=== PATIENT | male | born 1955 | race Caucasian/White ===

== ENCOUNTER 2019-03-06 21:20 | Day surgery (SDC) | payer BC ==
--- NOTE | 2019-03-06 21:39 | EDM.PDOC ---
ED HPI GENERAL MEDICAL PROBLEM - General Chief Complaint: ENT Problem Stated Complaint: PAIN IN THROAT Time Seen by Provider: 03/06/19 21:35 - History of Present Illness INITIAL COMMENTS - FREE TEXT/NARRATIVE: HISTORY AND PHYSICAL: History of present illness: Patient is 63-year-old white male presents with a concern of esophageal food bolus in the form of steak 3 hours prior to arrival he states that unable take any liquid or even handle his saliva he had no shortness of breath he's had similar episodes in the past that resolved spontaneously Review of systems: As per history of present illness and below otherwise all systems reviewed and negative. Past medical history: As per history of present illness and as reviewed below otherwise noncontributory. Surgical history: As per history of present illness and as reviewed below otherwise noncontributory. Social history: No reported history of drug or alcohol abuse. Family history: As per history of present illness and as reviewed below otherwise noncontributory. Physical exam: HEENT: Atraumatic, normocephalic, pupils reactive, negative for conjunctival pallor or scleral icterus, mucous membranes moist, throat clear, neck supple, nontender, trachea midline. Lungs: Clear to auscultation, breath sounds equal bilaterally, chest nontender. Heart: S1S2, regular, negative for clicks, rubs, or JVD. Abdomen: Soft, nondistended, nontender. Negative for masses or hepatosplenomegaly. Negative for costovertebral tenderness. Pelvis: Stable nontender. Genitourinary: Deferred. Rectal: Deferred. Extremities: Atraumatic, negative for cords or calf pain. Neurovascular unremarkable. Neuro: Awake, alert, oriented. Cranial nerves II through XII unremarkable. Cerebellum unremarkable. Motor and sensory unremarkable throughout. Exam nonfocal. Diagnostics: Chest x-ray Therapeutics: Saline lock glucagon 1 mg IV Impression: #1 esophageal food bolus Definitive disposition and diagnosis as appropriate pending reevaluation and review of above. Throat Pain Score (Numeric/FACES): 6 - Related Data Allergies Allergy/AdvReac Type Severity Reaction Status Date / Time No Known Allergies Allergy Verified 03/06/19 21:33 Home Meds: Home Meds Pantoprazole Sodium 40 mg PO QAM #30 tablet. 03/06/19 [Rx] Past Medical History Other HEENT History: hx recent sinus infection ED ROS GENERAL - Review of Systems Review Of Systems: ROS reveals no pertinent complaints other than HPI. ED EXAM, GENERAL - Physical Exam Exam: See Below (dictation) Course - Vital Signs Last Recorded V/S: Last Vital Signs Temp 36.2 C 03/06/19 23:49 Pulse 84 03/06/19 23:49 Resp 15 03/06/19 23:49 BP 159/102 H 03/06/19 23:49 Pulse Ox 97 03/06/19 23:49 - Orders/Labs/Meds Orders: Active Orders 24 hr Category Date Time Status Ready for Discharge [RC] PER UNIT ROUTINE Care 03/06/19 23:51 Active Saline Lock Insert [OM.PC] Stat Oth 03/06/19 21:38 Ordered Meds: Medications Discontinued Medications Generic Name Dose Route Start Last Admin Trade Name Darby PRN Reason Stop Dose Admin Fentanyl Confirm 03/06/19 22:48 Sublimaze Administered 03/06/19 22:49 Dose 100 mcg .ROUTE .STK-MED ONE Fentanyl Confirm 03/06/19 23:11 Sublimaze Administered 03/06/19 23:12 Dose 100 mcg .ROUTE .STK-MED ONE Glucagon 1 mg 03/06/19 21:40 03/06/19 21:54 Glucagen IVPUSH 03/06/19 21:41 1 mg ONETIME ONE Administration Propofol Confirm 03/06/19 22:48 Diprivan 20 Ml Administered 03/06/19 22:49 Dose 200 mg .ROUTE .STK-MED ONE Succinylcholine Chloride Confirm 03/06/19 22:48 Succinylcholine Chloride Administered 03/06/19 22:49 Dose 200 mg .ROUTE .STK-MED ONE Departure - Departure Time of Disposition: 23:59 Disposition: Still A Patient 30 Condition: Good Clinical Impression: Odynophagia - Discharge Information - My Orders Last 24 Hours: My Active Orders 03/06/19 21:38 Saline Lock Insert [OM.PC] Stat - Assessment/Plan Last 24 Hours: My Active Orders 03/06/19 21:38 Saline Lock Insert [OM.PC] Stat
[2019-03-06] MEDS ORDERED: Glucagon,Human Recombinant 1 MG Vial IVPUSH ONE (21:40)
--- NOTE | 2019-03-06 22:23 | PCM.HP ---
H&P History of Present Illness - General Date of Service: 03/06/19 Admit Problem/Dx: Esophageal obstruction due to food bolus Source of Information: Patient History Limitations: Reports: No Limitations - History of Present Illness Initial Comments - Free Text/Narative: Patient was eating steak at supper tonight and felt the food obstruct in his esophagus. This has happened to him multiple times before, however it has always passed without any further intervention. He has never had an EGD. He has no PCP. He denies heartburn or dysphagia to liquids. He denies fevers, chills, chest pain other than pressure from food being stuck, and/or abdominal pain. He is unable to swallow saliva. Throat Pain Score (Numeric/FACES): 6 - Related Data Allergies/Adverse Reactions: Allergies Allergy/AdvReac Type Severity Reaction Status Date / Time No Known Allergies Allergy Verified 03/06/19 21:33 Home Medications: Home Meds . [No Known Home Meds] 03/06/19 [History] Past Medical History Other HEENT History: hx recent sinus infection Cardiovascular History: Reports: None Respiratory History: Reports: None Genitourinary History: Reports: None Neurological History: Reports: None Psychiatric History: Reports: None Endocrine/Metabolic History: Reports: None Hematologic History: Reports: None Immunologic History: Reports: None Oncologic (Cancer) History: Reports: None Dermatologic History: Reports: None - Infectious Disease History Infectious Disease History: Reports: None - Past Surgical History Head Surgeries/Procedures: Reports: None HEENT Surgical History: Reports: LASIK GI Surgical History: Reports: Appendectomy Musculoskeletal Surgical History: Reports: Arthroscopic Procedure Other Musculoskeletal Surgeries/Procedures:: L knee surgery Social & Family History - Tobacco Use Smoking Status *Q: Former Smoker Used Tobacco, but Quit: Yes Month/Year Tobacco Last Used: 2014 - Recreational Drug Use Recreational Drug Use: No H&P Review of Systems - Review of Systems: Review Of Systems: See Below Exam - Exam Exam: See Below - Vital Signs Vital Signs: Last Vital Signs Temp 36.4 C 03/06/19 21:29 Pulse 69 03/06/19 21:55 Resp 18 03/06/19 21:55 BP 169/89 H 03/06/19 21:55 Pulse Ox 98 03/06/19 21:55 Weight: 95.8 kg - Exam General: Alert, Oriented, Cooperative HEENT: Conjunctiva Clear, Mucosa Moist & [place], Posterior Pharynx Clear Neck: Supple, Trachea Midline Lungs: Clear to Auscultation, Normal Respiratory Effort Cardiovascular: Regular Rate, Regular Rhythm GI/Abdominal Exam: Soft, No Distention - Problem List (1) Esophageal obstruction due to food impaction SNOMED Code(s): 370437684 ICD Code: K22.2 - ESOPHAGEAL OBSTRUCTION; T18.128A - FOOD IN ESOPHAGUS CAUSING OTHER INJURY, INITIAL ENCOUNTER Status: Acute Current Visit: Yes Problem List Initiated/Reviewed/Updated: Yes Orders Last 24hrs: Active Orders 24 hr Category Date Time Status Chest 1V Frontal [CR] Stat Exams 03/06/19 21:38 Taken Saline Lock Insert [OM.PC] Stat Oth 03/06/19 21:38 Ordered Assessment/Plan Comment:: Patient and I discussed the need for a diagnostic EGD with food bolus disimpaction. I explained the procedure, expected perioperative course and risks including bleeding, infection or perforation. He verbalized understanding and wishes to proceed.
--- NOTE | 2019-03-06 22:47 | CR ---
Indication: Shortness of breath, throat pain Technique: Chest 1 view Comparison: None Findings/Impression: Cardiovascular and mediastinum: Heart size and vasculature are normal in caliber and appearance. Mediastinum is within normal limits. Lungs and pleural space: Lungs are clear. No sign of infiltrate or mass. No sign of pleural effusion. No pneumothorax. Bones and soft tissues: No significant findings. Dictated by Harriet August MD @ Mar 06 2019 10:45PM Signed by Dr. Harriet August @ Mar 06 2019 10:45PM
[2019-03-06] MEDS ORDERED: Propofol 200 MG/20 ML SDV ONE (22:48)
[2019-03-06] MEDS ORDERED: fentaNYL 100 MCG/2 ML SDV ONE ×2 (22:48→23:11)
--- NOTE | 2019-03-06 22:50 | PCM.PREANE ---
Preanesthetic Assessment - Anesthesia/Transfusion/Family Hx Anesthesia History: Prior Anesthesia Without Reaction Family History of Anesthesia Reaction: No Transfusion History: No Prior Transfusion(s) - Review of Systems General: No Symptoms Pulmonary: No Symptoms Cardiovascular: No Symptoms Gastrointestinal: Difficulty Swallowing (currently with steak stuck in esophagus ) Neurological: No Symptoms Other: Reports: None - Physical Assessment NPO Status Date: 03/06/19 NPO Status Time: 18:00 O2 Sat by Pulse Oximetry: 98 Respiratory Rate: 18 Vital Signs: Last Vital Signs Temp 36.9 C 03/06/19 22:44 Pulse 68 03/06/19 22:44 Resp 18 03/06/19 22:44 BP 160/89 H 03/06/19 22:44 Pulse Ox 98 03/06/19 22:44 Height: 6 ft 1 in Weight: 95.8 kg ASA Class: 2E Mental Status: Alert & Oriented x3 Airway Class: Mallampati = 3 Dentition: Reports: Normal Dentition Thyro-Mental Finger Breadths: 3 Mouth Opening Finger Breadths: 3 ROM/Head Extension: Full Lungs: Clear to Auscultation, Normal Respiratory Effort Cardiovascular: Regular Rate, Regular Rhythm - Allergies Allergies/Adverse Reactions: Allergies Allergy/AdvReac Type Severity Reaction Status Date / Time No Known Allergies Allergy Verified 03/06/19 21:33 - Acknowledgements Anesthesia Type Planned: General Anesthesia Pt an Appropriate Candidate for the Planned Anesthesia: Yes Alternatives and Risks of Anesthesia Discussed w Pt/Guardian: Yes Pt/Guardian Understands and Agrees with Anesthesia Plan: Yes PreAnesthesia Questionnaire Other HEENT History: hx recent sinus infection Cardiovascular History: Reports: None Respiratory History: Reports: None Gastrointestinal History: Reports: Other (See Below) (Dysphagia) Genitourinary History: Reports: None Musculoskeletal History: Reports: None Neurological History: Reports: None Psychiatric History: Reports: None Endocrine/Metabolic History: Reports: None Hematologic History: Reports: None Immunologic History: Reports: None Oncologic (Cancer) History: Reports: None Dermatologic History: Reports: None - Infectious Disease History Infectious Disease History: Reports: None - Past Surgical History Head Surgeries/Procedures: Reports: None HEENT Surgical History: Reports: LASIK GI Surgical History: Reports: Appendectomy Musculoskeletal Surgical History: Reports: Arthroscopic Procedure Other Musculoskeletal Surgeries/Procedures:: L knee surgery - SUBSTANCE USE Smoking Status *Q: Former Smoker Recreational Drug Use History: No - HOME MEDS Home Medications: Home Meds . [No Known Home Meds] 03/06/19 [History] - CURRENT (IN HOUSE) MEDS Current Meds: Current Medications Discontinued Medications Glucagon (Glucagen) 1 mg IVPUSH ONETIME ONE Stop: 03/06/19 21:41 Last Admin: 03/06/19 21:54 Dose: 1 mg
--- NOTE | 2019-03-06 23:55 | PCM.OPNOTE ---
- General Post-Op/Procedure Note Date of Surgery/Procedure: 03/06/19 Operative Procedure(s): EGD with food disimpaction Findings: Steak bolus impacted at 35 cm. Mild duodenitis. Hiatal hernia with signs of esophagitis. Pre Op Diagnosis: Esophageal food impaction Post-Op Diagnosis: Hiatal hernia with reflux and esophagitis, esophageal food impaction, duodenitis [place] [facility] [place]geon: Estella Guthrie Condition: Fair
--- NOTE | 2019-03-07 00:04 | PCM.POSTAN ---
POST ANESTHESIA ASSESSMENT - MENTAL STATUS Mental Status: Alert (No apparent anesthesia complications noted. No concerns at this time.), Oriented - RESPIRATORY Respiratory Status: Respiratory Rate WNL, Airway Patent, O2 Saturation Stable - CARDIOVASCULAR CV Status: Pulse Rate WNL, Blood Pressure Stable - GASTROINTESTINAL GI Status: No Symptoms - POST OP HYDRATION Hydration Status: Adequate & Stable
--- NOTE | 2019-03-07 00:14 | PCM48HPAN ---
Post Anesthesia Note - EVALUATION WITHIN 48HRS OF ANESTHETIC Vital Signs in Normal Range: Yes Patient Participated in Evaluation: Yes Respiratory Function Stable: Yes Airway Patent: Yes Cardiovascular Function Stable: Yes Hydration Status Stable: Yes Pain Control Satisfactory: Yes Nausea and Vomiting Control Satisfactory: Yes Mental Status Recovered: Yes Resp Rate: 15 - COMMENTS/OBSERVATIONS Free Text/Narrative:: Patient awake and orient. VSS. No apparent anethesia complications at this time. OK for discharge from anesthesia stand point. Discharge from this point forward per Dr. Gamble.
--- NOTE | 2019-03-07 02:37 | OR ---
SURGEON: ELHAM METCALF MD DATE OF PROCEDURE: 03/06/2019 PREOPERATIVE DIAGNOSIS: Esophageal obstruction due to food bolus impaction. POSTOPERATIVE DIAGNOSES: 1. Esophageal obstruction due to food bolus impaction. 2. Hiatal hernia with reflux and esophagitis. 3. Duodenitis. PROCEDURE PERFORMED: Diagnostic esophagogastroduodenoscopy with food disimpaction. ANESTHESIA: General endotracheal anesthesia. FLUIDS: See anesthesia record. INSTRUMENT USED: Olympus endoscope. EXTENT OF EXAMINATION: To the second portion of the duodenum. PREPARATION/LIMITATIONS: None. INDICATIONS: The patient is a 63-year-old male with a history of dysphagia, who was eating a piece of steak tonight when he felt it got stuck. Despite conservative measures, the food obstruction persisted. The patient presented to the emergency room. I explained the need for a diagnostic EGD with food disimpaction. I explained the procedure, expected perioperative course, and risks including bleeding, infection, or damage to surrounding structures including perforation. The patient verbalized understanding and wishes to proceed. PROCEDURE IN DETAIL: The patient was brought into the endoscopy suite and placed in a beach chair position. A time-out was completed verifying the patient's name, age, date of , allergies, and procedure to be performed. General endotracheal anesthesia was induced. A bite block was placed in the patient's mouth. A well lubricated endoscope was placed in the patient's mouth and advanced under direct visualization to the distal esophagus. At approximately 35 cm from the teeth, the patient was noted to have a large piece of meat obstructing the lumen of the esophagus. Using a combination of a tri prong grasper and a cold biopsy forceps, I slowly picked away at this food bolus. Eventually, I was able to mobilize enough of the meat in order to then get around it. I grasped it with the tri prong grasper and removed the bolus from its site of impaction. This was quite large, and I had difficulty removing it from the esophagus. It was placed in an endoscopic basket and removed through the mouth. The scope was then reinserted into the mouth and advanced under direct visualization to the second portion of the duodenum. This appeared normal and a photograph were taken. The scope was then straightened out and fully withdrawn while examining the color, texture, anatomy, and integrity of the mucosa of the upper GI tract. The patient had signs of some mild duodenitis. A photograph of this was taken. The scope was brought into the stomach. A photograph was taken of the pylorus as well as the GE junction. The patient appeared to have a small hiatal hernia. The gastric mucosa appeared healthy. The scope was brought into the distal esophagus. The patient appeared to have a small hiatal hernia in the distal esophagus that appeared both acutely as well as chronically inflamed. Given the acute nature of the disease, no biopsies were taken. There was no evidence of perforation. There was no evidence of any significant bleeding. The scope was removed and the procedure terminated. The patient tolerated the procedure well and was taken to PACU in stable condition. ENDOSCOPIC DIAGNOSES: 1. Esophageal obstruction due to food bolus impaction. 2. Hiatal hernia with reflux and esophagitis. 3. Duodenitis. RECOMMENDATIONS: The patient could be discharged home tonight. He will need to be on a clear liquid diet for the next 24 hours and a soft liquid diet for 1 week after that. I instructed him to not eat any meat or dry breads. I will place him on Protonix 40 mg daily and follow up with him in clinic in 2 weeks. DEDRICK CEDEÑO /[id number]
== END 2019-03-07 00:50 | disposition home or self-care (01) ==
LOC: MW.ED 21:20 → MW.SDS 22:10 → MW.MS 23:24 → MW.SDS 03-07 00:50
PROVIDERS: ATTEND Surgery
DX: T18.128A Food in esophagus causing other injury, initial encounter (principal); K21.0 Gastro-esophageal reflux disease with esophagitis; K44.9 Diaphragmatic hernia without obstruction or gangrene; K29.80 Duodenitis without bleeding; Z87.891 Personal history of nicotine dependence
CPT/HCPCS: 43247; 71045; 96374; 99284; J0330; J1610; J2704; J3010; 00731; 99283